=== PATIENT | male | born 1990 | race American Indian/Alaskan Native ===

== ENCOUNTER 2021-11-16 10:40 | Inpatient (IN) | payer SELFPAY ==
[2021-11-16 13:02] LABS: Hematocrit 44.6 % (35.5-45.6); Hemoglobin 14.6 gm/dl (11.8-15.2); Mean Corpuscular HGB Conc 33 % (32-34); Mean Corpuscular Volume 89 fl (84-94); Platelet Count 243 K/mm3 (140-440); Red Blood Count 5.05 M/mm3 (3.65-5.03); Red Cell Distribution Width 13.4 % (13.2-15.2)
[2021-11-16 13:04] LABS: Albumin 4.6 g/dL (3.9-5); Calcium 9.5 mg/dL (8.4-10.2)
[2021-11-16 16:49] LABS: Basophils % (Manual) 0 % (0.0-1.8); Eosinophils % (Manual) 0 % (0.0-4.3); Total Cells Counted 100
[2021-11-16 16:50] LABS: Platelet Estimate Consistent w Auto; RBC Morphology Normal
[2021-11-16] MEDS ORDERED: SODIUM CHLORIDE 0.9% 1000 ML 1,000 ML IV ONE ×2 (22:21)
[2021-11-16] MEDS ORDERED: ONDANSETRON 4 MG/2 ML INJ IV ONE (22:33)
--- NOTE | 2021-11-16 22:37 | Emergency Department Report ---
HPI - General Chief Complaint: Hyperglycemia Time Seen by Provider: 11/16/21 22:18 - HPI HPI: Room 24 The patient is a 31-year-old male present with a chief complaint of nausea vomiting. Patient is a type I diabetic and states for the past 2 days he has had intractable nausea vomiting. Patient states she has been taking his insulin but has not been able to eat. Patient denies diarrhea or fever. Patient initially denied pain but states he developed epigastric pain a few hours ago. ED Past Medical Hx - Past Medical History Hx Diabetes: Yes (Type I) - Surgical History Past Surgical History?: No - Family History Family history: no significant - Social History Smoking Status: Current Every Day Smoker (1 pack/day) Substance Use Type: None (Denies illicit drug use) ED Review of Systems ROS: Stated complaint: HIGH BLOOD PRESSURE Other details as noted in HPI Constitutional: denies: fever Eyes: denies: eye pain ENT: denies: throat pain Respiratory: no symptoms reported Cardiovascular: denies: chest pain Endocrine: no symptoms reported Gastrointestinal: abdominal pain, nausea, vomiting. denies: diarrhea Genitourinary: denies: dysuria Musculoskeletal: denies: back pain Neurological: denies: headache Physical Exam - Physical Exam Vital Signs: Vital Signs 11/16/21 23:09 Temperature 98.3 F Pulse Rate 116 H Respiratory 11 L Rate Blood Pressure 139/79 [Right] O2 Sat by Pulse 99 Oximetry Physical Exam: GENERAL: The patient is well-developed well-nourished male lying on stretcher not appearing to be in acute distress. [] HEENT: Normocephalic. Atraumatic. Extraocular motions are intact. Patient has dry mucous membranes. NECK: Supple. Trachea midline CHEST/LUNGS: Clear to auscultation. There is no respiratory distress noted. HEART/CARDIOVASCULAR: Regular. There is tachycardia. There is no gallop rub or murmur. ABDOMEN: Abdomen is soft, nontender. Patient has normal bowel sounds. There is no abdominal distention. SKIN: There is no rash. There is no edema. There is no diaphoresis. NEURO: The patient is awake, alert, and oriented. The patient is cooperative. The patient has no focal neurologic deficits. The patient has normal speech. GCS 15 MUSCULOSKELETAL: There is no evidence of acute injury. ED Medical Decision Making - Lab Data Result diagrams: 11/16/21 12:03 11/16/21 12:03 Laboratory Tests 11/16/21 11/16/21 11/16/21 12:03 12:03 12:03 WBC 21.1 H RBC 5.05 H Hgb 14.6 Hct 44.6 MCV 89 MCH 29 MCHC 33 RDW 13.4 Plt Count 243 Add Manual Diff Complete Total Counted 100 Seg Neuts % (Manual) 80.0 H Band Neutrophils % 0 Lymphocytes % (Manual) 13.0 L Reactive Lymphs % (Man) 0 Monocytes % (Manual) 7.0 Eosinophils % (Manual) 0 Basophils % (Manual) 0 Metamyelocytes % 0 Myelocytes % 0 Promyelocytes % 0 Blast Cells % 0 Nucleated RBC % Not Reportable Seg Neutrophils # Man 16.9 H Band Neutrophils # 0.0 Lymphocytes # (Manual) 2.7 Abs React Lymphs (Man) 0.0 Monocytes # (Manual) 1.5 H Eosinophils # (Manual) 0.0 Basophils # (Manual) 0.0 Metamyelocytes # 0.0 Myelocytes # 0.0 Promyelocytes # 0.0 Blast Cells # 0.0 WBC Morphology Not Reportable Hypersegmented Neuts Not Reportable Hyposegmented Neuts Not Reportable Hypogranular Neuts Not Reportable Smudge Cells Not Reportable Toxic Granulation Not Reportable Toxic Vacuolation Not Reportable Dohle Bodies Not Reportable Pelger-Huet Anomaly Not Reportable Johnnie Rods Not Reportable Platelet Estimate Consistent w auto Clumped Platelets Not Reportable Plt Clumps, EDTA Not Reportable Large Platelets Not Reportable Giant Platelets Not Reportable Platelet Satelliting Not Reportable Plt Morphology Comment Not Reportable RBC Morphology Normal Dimorphic RBCs Not Reportable Polychromasia Not Reportable Hypochromasia Not Reportable Poikilocytosis Not Reportable Anisocytosis Not Reportable Microcytosis Not Reportable Macrocytosis Not Reportable Spherocytes Not Reportable Pappenheimer Bodies Not Reportable Sickle Cells Not Reportable Target Cells Not Reportable Tear Drop Cells Not Reportable Ovalocytes Not Reportable Helmet Cells Not Reportable Berumen-Hackberry Bodies Not Reportable Cleghorn Rings Not Reportable Marion Cells Not Reportable Bite Cells Not Reportable Crenated Cell Not Reportable Elliptocytes Not Reportable Acanthocytes (Spur) Not Reportable Rouleaux Not Reportable Hemoglobin C Crystals Not Reportable Schistocytes Not Reportable Malaria parasites Not Reportable Edward Bodies Not Reportable Hem Pathologist Commnt No VBG pH 7.268 L Sodium 141 Potassium 5.8 H Chloride 94.7 L Carbon Dioxide 20 L Anion Gap 32 BUN 50 H Creatinine 2.3 H Estimated GFR 33 BUN/Creatinine Ratio 22 Glucose 476 H Calcium 9.5 Total Bilirubin 0.40 AST 12 ALT 24 Alkaline Phosphatase 103 Total Protein 7.3 Albumin 4.6 Albumin/Globulin Ratio 1.7 - Differential Diagnosis DKA Critical care attestation.: If time is entered above; I have spent that time in minutes in the direct care of this critically ill patient, excluding procedure time. ED Disposition Clinical Impression: DKA (diabetic ketoacidosis) Disposition: ADMITTED INPATIENT Is pt being admited?: Yes Does the pt Need Aspirin: No Condition: Fair Instructions: Diabetic Ketoacidosis (ED) Time of Disposition: 22:37 (Care transferred to hospitalist (Dr. Ely))
[2021-11-16] MEDS ORDERED: MAGNESIUM HYDROXIDE (MOM) ORAL LIQD UDC PO PRN (22:43)
[2021-11-16] MEDS ORDERED: MORPHINE 4 MG/1 ML INJ IV PRN (22:43)
[2021-11-16] MEDS ORDERED: ONDANSETRON 4 MG/2 ML INJ IV PRN (22:43)
[2021-11-16] MEDS ORDERED: ACETAMINOPHEN 325 MG TAB PO PRN (22:43)
[2021-11-16] MEDS ORDERED: MORPHINE 2 MG/1 ML INJ IV PRN (22:43)
[2021-11-16] MEDS ORDERED: DEXTROSE 50% IN WATER (25GM) 50 ML SYRINGE IV PRN (22:43)
[2021-11-16] MEDS ORDERED: SODIUM CHLORIDE 0.9% 1000 ML 1,000 ML IV SCH (22:45)
--- NOTE | 2021-11-16 22:53 | History and Physical Report ---
History of Present Illness Date of examination: 11/16/21 Date of admission: 11/16/2021 Chief complaint: Nausea and Vomiting History of present illness: 31-year-old male with known history of diabetes mellitus presenting to the emergency room today complaining of nausea and vomiting which has been ongoing for the past 2 days. Patient denies any fever or chills , denies any chest pain or shortness of breath. Denies any diarrhea. He however has had some mild epig astric discomfort. Patient denies any sick contacts and no recent travel. Denies any contact with anyone with COVID-19. He states he has been compliant with his medications. Work-up in the emergency room today, labs are significant for leukocytosis of 21.1, blood glucose of 476, anion gap of 32, BUN of 15 creatinine of 2.3. Patient has been admitted in DKA and SANDRA. Past History Past Medical History: diabetes Past Surgical History: No surgical history Social history: smoking (Current daily smoker) Family history: no significant family history Medications and Allergies Allergies Allergy/AdvReac Type Severity Reaction Status Date / Time No Known Allergies Allergy Verified 11/16/21 11:12 Active Meds: Active Medications Insulin Human Regular 100 (units/ Sodium Chloride) 100 mls @ 8 mls/hr IV TITR LATA; Protocol Sodium Chloride (Nacl 0.9% 1000 Ml) 1,000 mls @ 999 mls/hr IV ONCE ONE Stop: 11/16/21 23:21 Sodium Chloride (Nacl 0.9% 1000 Ml) 1,000 mls @ 999 mls/hr IV ONCE ONE Stop: 11/16/21 23:21 Review of Systems Constitutional: no fever, no chills Ears, nose, mouth and throat: no nasal congestion, no sore throat Cardiovascular: no chest pain, no palpitations Respiratory: no cough, no shortness of breath Gastrointestinal: abdominal pain, nausea, vomiting, no diarrhea Genitourinary Male: no dysuria, no hematuria, no flank pain Musculoskeletal: no neck pain, no low back pain Integumentary: no rash, no pruritis Neurological: no headaches, no confusion Psychiatric: no anxiety, no depression Endocrine: no polyphagia, no polydipsia, no polyuria, no nocturia Exam - Constitutional General appearance: Present: no acute distress, well-nourished - EENT Eyes: Present: PERRL, EOM intact. Absent: scleral icterus ENT: hearing intact, clear oral mucosa, dentition normal - Neck Neck: Present: supple, normal ROM - Respiratory Respiratory effort: normal Respiratory: bilateral: CTA - Cardiovascular Rhythm: regular Heart Sounds: Present: S1 & S2. Absent: gallop, systolic murmur, diastolic murmur, rub, click - Extremities Extremities: no ischemia, pulses intact, pulses symmetrical, No edema, normal temperature, normal color, Full ROM Peripheral Pulses: within normal limits - Abdominal General gastrointestinal: Present: soft, non-tender, non-distended, normal bowel sounds. Absent: mass - Integumentary Integumentary: Present: clear, warm, dry, normal turgor. Absent: rash - Musculoskeletal Musculoskeletal: strength equal bilaterally - Psychiatric Psychiatric: appropriate mood/affect, intact judgment & insight, memory intact, cooperative - Neurologic Neurologic: CNII-XII intact, no focal deficits, moves all extremities Results - Labs CBC & Chem 7: 11/16/21 12:03 11/17/21 04:32 Labs: Abnormal lab results 11/16/21 11/16/21 11/16/21 Range/Units 12:03 12:03 12:03 WBC 21.1 H (4.5-11.0) K/mm3 RBC 5.05 H (3.65-5.03) M/mm3 Seg Neuts % (Manual) 80.0 H (40.0-70.0) % Lymphocytes % (Manual) 13.0 L (13.4-35.0) % Seg Neutrophils # Man 16.9 H (1.8-7.7) K/mm3 Monocytes # (Manual) 1.5 H (0.0-0.8) K/mm3 VBG pH 7.268 L (7.320-7.420) Potassium 5.8 H (3.6-5.0) mmol/L Chloride 94.7 L (98-107) mmol/L Carbon Dioxide 20 L (22-30) mmol/L BUN 50 H (9-20) mg/dL Creatinine 2.3 H (0.8-1.3) mg/dL Glucose 476 H (75-100) mg/dL Assessment and Plan Assessment: 1.Diabetic Ketoacidosis 2.Nausea and Vomiting- Secondary to DKA 3. SANDRA-possibly secondary to dehydration. Plan: 1.Started on insulin drip and IV fluid 2.Will monitor blood glucose closely 3. We will continue patient on IV fluid. Will monitor BUN and creatinine. 4. We will place consult to nephrology for further evaluation and recommendations. DVT Prophylaxis: SQ Heparin Code Status: Full Code
[2021-11-16] MEDS ORDERED: INSULIN REGULAR, HUMAN 100 UNITS in SODIUM CHLORIDE 0.9% 99 ML IV SCH (23:00)
[2021-11-16] MEDS ORDERED: D5W/0.45% NACL/KCL 20 MEQ 20 MEQ/1,000 ML BAG IV SCH (23:00)
[2021-11-16 23:28] LABS: Calcium 9.1 mg/dL (8.4-10.2)
[2021-11-17 01:34] LABS: Calcium 8.2 mg/dL (8.4-10.2)
[2021-11-17] MEDS: D5W/0.45% NACL 1,000 ML IV SCH ×2 (05:05→14:30)
[2021-11-17 05:30] LABS: Calcium 8.8 mg/dL (8.4-10.2)
[2021-11-17] MEDS: HEPARIN 5,000 UNIT/1 ML VIAL SUB-Q SCH ×2 (07:29→14:31)
--- NOTE | 2021-11-17 08:37 | Progress Note ---
Subjective Date of service: 11/17/21 Objective - Vital Signs Vital signs: Vital Signs - 12hr 11/16/21 11/17/21 11/17/21 23:09 02:58 06:00 Temperature 98.3 F Pulse Rate 116 H Respiratory 11 L Rate Blood Pressure 139/79 [Right] O2 Sat by Pulse 99 98 98 Oximetry - Lab 11/16/21 12:03 11/17/21 04:32 Most recent lab results Calcium 8.8 mg/dL (8.4-10.2) 11/17/21 04:32 Phosphorus 4.60 mg/dL (2.5-4.5) H 11/16/21 22:52 Magnesium 2.50 mg/dL (1.7-2.3) H 11/16/21 22:52 Medications & Allergies - Medications Allergies/Adverse Reactions: Allergies No Known Allergies Allergy (Verified 11/16/21 11:12) Active Medications: Generic Name Dose Route Start Last Admin Trade Name Freq PRN Reason Stop Dose Admin Acetaminophen 650 mg 11/16/21 22:43 Acetaminophen 325 Mg Tab PO Q6H PRN Pain MILD(1-3)/Fever >100.5/CORONA Dextrose 0 ml 11/16/21 22:43 Dextrose 50% In Water (25gm) 50 Ml Syringe IV Q30MIN PRN Hypoglycemia Protocol Famotidine 20 mg 11/17/21 10:00 Famotidine 20 Mg/2 Ml Inj IV 11/18/21 09:59 QDAY LATA Famotidine 20 mg 11/18/21 10:00 Famotidine 20 Mg Tab PO QDAY LATA Heparin Sodium (Porcine) 5,000 unit 11/17/21 06:00 11/17/21 07:29 Heparin 5,000 Unit/1 Ml Vial SUB-Q 5,000 unit Q8HR LATA Administration Insulin Human Regular 100 100 mls @ 8 mls/hr 11/16/21 23:00 11/17/21 08:02 units/ Sodium Chloride IV 3 units/hr TITR LATA 3 mls/hr Titration Protocol 8 UNITS/HR Sodium Chloride 1,000 mls @ 150 mls/hr 11/16/21 22:45 11/17/21 05:05 Nacl 0.9% 1000 Ml IV 0 mls/hr DIRECT LATA Infusion Dextrose/Sodium Chloride 1,000 mls @ 125 mls/hr 11/17/21 04:03 11/17/21 05:05 D5/0.45ns IV 125 mls/hr DIRECT LATA Administration Lactated Ringer's 2,000 mls @ 999 mls/hr 11/17/21 10:00 Lactated Ringers IV 11/17/21 12:00 BOLUS ONE Magnesium Hydroxide 30 ml 11/16/21 22:43 Magnesium Hydroxide (Mom) Oral Liqd Udc PO Q4H PRN Constipation Morphine Sulfate 2 mg 11/16/21 22:43 Morphine 2 Mg/1 Ml Inj IV Q4H PRN Pain, Moderate (4-6) Ondansetron HCl 4 mg 11/16/21 22:43 11/17/21 02:45 Ondansetron 4 Mg/2 Ml Inj IV 4 mg Q8H PRN Administration Nausea And Vomiting Sodium Chloride 10 ml 11/17/21 10:00 Sodium Chloride 0.9% 10 Ml Flush Syringe IV BID LATA Sodium Chloride 10 ml 11/16/21 22:43 Sodium Chloride 0.9% 10 Ml Flush Syringe IV PRN PRN LINE FLUSH
[2021-11-17] MEDS ORDERED: FAMOTIDINE 20 MG/2 ML INJ IV SCH (10:00)
[2021-11-17] MEDS ORDERED: LACTATED RINGERS 2,000 ML IV ONE (10:00)
[2021-11-17 10:27] LABS: Mucus,Urine FEW /HPF; RBC,Urine < 1.0 /HPF (0.0-6.0)
[2021-11-17 10:54] LABS: Color,Urine Straw (Yellow)
[2021-11-17 11:28] LABS: Hematocrit 40.5 % (35.5-45.6); Hemoglobin 13.5 gm/dl (11.8-15.2); Mean Corpuscular HGB Conc 33 % (32-34); Mean Corpuscular Volume 88 fl (84-94); Platelet Count 174 K/mm3 (140-440); Red Cell Distribution Width 13.5 % (13.2-15.2)
[2021-11-17 11:41] LABS: BUN/Creatinine Ratio 19; Blood Urea Nitrogen 26 mg/dL (9-20); Calcium 8.8 mg/dL (8.4-10.2); Hemolysis Index 2
--- NOTE | 2021-11-17 12:51 | Consultation ---
History of Present Illness Consult date: 11/17/21 Requesting physician: DESIREE ELLER Reason for consult: other (DKA) History of present illness: PULMONARY/CCM CONSULT NOTE (Full dictation # [id number]) Please see dictated notes for full details Past History Past Medical History: diabetes Past Surgical History: No surgical history Social history: smoking (Current daily smoker) Family history: no significant family history Medications and Allergies Allergies Allergy/AdvReac Type Severity Reaction Status Date / Time No Known Allergies Allergy Verified 11/16/21 11:12 Home Medications Medication Instructions Recorded Confirmed Last Taken Type NovoLIN 70/30 15 units SQ BID 11/17/21 11/17/21 11/16/21 08:00 History Novolin R units SQ ACHS 11/17/21 11/16/21 08:00 History Active Meds: Active Medications Acetaminophen (Acetaminophen 325 Mg Tab) 650 mg PO Q6H PRN PRN Reason: Pain MILD(1-3)/Fever >100.5/CORONA Dextrose (Dextrose 50% In Water (25gm) 50 Ml Syringe) 0 ml IV Q30MIN PRN; Protocol PRN Reason: Hypoglycemia Famotidine (Famotidine 20 Mg/2 Ml Inj) 20 mg IV QDAY LATA Stop: 11/18/21 09:59 Last Admin: 11/17/21 09:09 Dose: 20 mg Famotidine (Famotidine 20 Mg Tab) 20 mg PO QDAY LATA Heparin Sodium (Porcine) (Heparin 5,000 Unit/1 Ml Vial) 5,000 unit SUB-Q Q8HR LATA Last Admin: 11/17/21 07:29 Dose: 5,000 unit Insulin Human Regular 100 (units/ Sodium Chloride) 100 mls @ 8 mls/hr IV TITR LATA; Protocol Last Titration: 11/17/21 12:07 Dose: 1 units/hr, 1 mls/hr Sodium Chloride (Nacl 0.9% 1000 Ml) 1,000 mls @ 150 mls/hr IV DIRECT LATA Last Infusion: 11/17/21 05:05 Dose: 0 mls/hr Dextrose/Sodium Chloride (D5/0.45ns) 1,000 mls @ 125 mls/hr IV DIRECT LATA Last Admin: 11/17/21 05:05 Dose: 125 mls/hr Magnesium Hydroxide (Magnesium Hydroxide (Mom) Oral Liqd Udc) 30 ml PO Q4H PRN PRN Reason: Constipation Morphine Sulfate (Morphine 2 Mg/1 Ml Inj) 2 mg IV Q4H PRN PRN Reason: Pain, Moderate (4-6) Ondansetron HCl (Ondansetron 4 Mg/2 Ml Inj) 4 mg IV Q8H PRN PRN Reason: Nausea And Vomiting Last Admin: 11/17/21 02:45 Dose: 4 mg Sodium Chloride (Sodium Chloride 0.9% 10 Ml Flush Syringe) 10 ml IV BID LATA Last Admin: 11/17/21 09:09 Dose: 10 ml Sodium Chloride (Sodium Chloride 0.9% 10 Ml Flush Syringe) 10 ml IV PRN PRN PRN Reason: LINE FLUSH Physical Examination Vital signs: Vital Signs Temp Pulse Resp BP Pulse Ox 98.3 F 116 H 11 L 139/79 99 11/16/21 23:09 11/16/21 23:09 11/16/21 23:09 11/16/21 23:09 11/16/21 23:09 Results - Laboratory Findings CBC and BMP: 11/17/21 11:05 11/17/21 11:05 Abnormal lab findings: Abnormal Labs 11/16/21 11/16/21 11/16/21 12:03 12:03 12:03 WBC 21.1 H RBC 5.05 H Seg Neuts % (Manual) 80.0 H Lymphocytes % (Manual) 13.0 L Seg Neutrophils # Man 16.9 H Monocytes # (Manual) 1.5 H VBG pH 7.268 L Sodium Potassium 5.8 H Chloride 94.7 L Carbon Dioxide 20 L BUN 50 H Creatinine 2.3 H Glucose 476 H POC Glucose Hemoglobin A1c Calcium Phosphorus Magnesium 11/16/21 11/16/21 11/16/21 22:52 22:52 23:58 WBC RBC Seg Neuts % (Manual) Lymphocytes % (Manual) Seg Neutrophils # Man Monocytes # (Manual) VBG pH Sodium Potassium 5.6 H Chloride Carbon Dioxide 19 L BUN 46 H Creatinine 2.1 H Glucose 487 H POC Glucose 397 H Hemoglobin A1c Calcium Phosphorus 4.60 H Magnesium 2.50 H 11/17/21 11/17/21 11/17/21 00:46 01:17 02:34 WBC RBC Seg Neuts % (Manual) Lymphocytes % (Manual) Seg Neutrophils # Man Monocytes # (Manual) VBG pH Sodium Potassium 5.5 H Chloride Carbon Dioxide 18 L BUN 43 H Creatinine 1.7 H Glucose 449 H POC Glucose 346 H 323 H Hemoglobin A1c Calcium 8.2 L Phosphorus Magnesium 11/17/21 11/17/21 11/17/21 04:01 04:32 05:01 WBC RBC Seg Neuts % (Manual) Lymphocytes % (Manual) Seg Neutrophils # Man Monocytes # (Manual) VBG pH Sodium 148 H Potassium Chloride 107.7 H Carbon Dioxide BUN 38 H Creatinine 1.7 H Glucose 218 H POC Glucose 238 H 160 H Hemoglobin A1c Calcium Phosphorus Magnesium 11/17/21 11/17/21 11/17/21 06:07 06:48 08:00 WBC RBC Seg Neuts % (Manual) Lymphocytes % (Manual) Seg Neutrophils # Man Monocytes # (Manual) VBG pH Sodium Potassium Chloride Carbon Dioxide BUN Creatinine Glucose POC Glucose 193 H 150 H 157 H Hemoglobin A1c Calcium Phosphorus Magnesium 11/17/21 11/17/21 11/17/21 09:05 09:59 10:56 WBC RBC Seg Neuts % (Manual) Lymphocytes % (Manual) Seg Neutrophils # Man Monocytes # (Manual) VBG pH Sodium Potassium Chloride Carbon Dioxide BUN Creatinine Glucose POC Glucose 129 H 127 H 111 H Hemoglobin A1c Calcium Phosphorus Magnesium 11/17/21 11/17/21 11/17/21 11:05 11:05 11:05 WBC 15.4 H RBC Seg Neuts % (Manual) Lymphocytes % (Manual) Seg Neutrophils # Man Monocytes # (Manual) VBG pH Sodium 148 H Potassium Chloride 109.1 H Carbon Dioxide BUN 26 H Creatinine 1.4 H Glucose 112 H POC Glucose Hemoglobin A1c 9.7 H Calcium Phosphorus Magnesium
[2021-11-17 13:55] LABS: Creatinine,Urine 142.5 mg/dL (0.1-20.0); Protein/Creatinine Ratio,Urine 0.34
[2021-11-17] MEDS ORDERED: DEXTROSE 50% IN WATER (25GM) 50 ML SYRINGE IV PRN (14:00)
[2021-11-17] MEDS ORDERED: INSULIN NPH/REGULAR 70/30 INJ SUB-Q SCH (15:30)
[2021-11-17] MEDS: INSULIN REGULAR, HUMAN 100 UNITS/1 ML SUB-Q SCH ×2 (16:27→16:30)
--- NOTE | 2021-11-17 16:59 | Discharge Summary ---
<MOOK THOMAS - Last Filed: 11/17/21 19:07> Providers - Providers Date of Admission: 11/16/21 22:43 Date of discharge: 11/17/21 Attending physician: MIKA KHAN MD 11/16/21 22:43 Consult to Dietitian/Nutrition [CONS] Routine Physician Instructions: Reason For Exam: Reason for Consult: Diet education Consult to Physician [CONS] Routine Comment: Consulting Provider: MONCHO GREEN Physician Instructions: Reason For Exam: DKA 11/17/21 07:54 Consult to Physician [CONS] Routine Comment: Consulting Provider: PRIYA JACK Physician Instructions: Reason For Exam: SANDRA Primary care physician: GROUP THERAPIST Hospitalization Reason for admission: Diabetioc Ketoacidosis(DKA), SANDRA Condition: Stable Hospital course: This is a 31-year old male with past medical history of insulin dependent diabetes mellitus who presented in the emergency room complaining of nausea and vomiting which has been ongoing for the past 2 days. Patient denies any fever or chills, no diarrhea, nor any chest pain or shortness of breath. He however has had some mild epigastric discomfort. Patient denies any sick contacts and no recent travel. Denies any contact with anyone with COVID-19. He states he has been compliant with his medications. Work-up in the emergency room shows labs are significant for leukocytosis of 21.1, blood glucose of 476, anion gap of 32, BUN of 15 creatinine of 2.3. Patient was [facility] for D[facility] and SANDRA. Insulin gtt and IVF resuscitation were initiated per DKA protocol. Patient's BG and anion gap closed this am. Nausea/vomiting and abdominal pain resolved. Patient renal function also showed significant improvement post IVF hydration. Renal US pending and Nephrology was consulted. Patient reported his DKA is probably related to dehydration. 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 Patient reported being compliant with his insulin and his current regimen has been working. Patient was transitioned to his home insulin regimen and is tolerating PO intake. Patient is stable for discharge back home today. Follow up outpatient with nephrology for Renal US result and further management. Plan of care thoroughly discussed with patient. He verbalized understanding and agreed with current care plan. Patient is a daily 1 pack a day cigarettes smoker for over 10 years. Smoking cessation education and quitline resources provided. Patient verbalized understanding and agreed with the info provided. Patient denied any smoking urges at this time. Patient also reported that he usually get his insulin at [facility], he does not need any prescription for discharge. Diagnoses 1.Diabetic Ketoacidosis 2.Nausea and Vomiting- Secondary to DKA 3.SANDRA-possibly secondary to dehydration. Plan: 1.Started on insulin drip and IV fluid 2.Will monitor blood glucose closely 3.We will continue patient on IV fluid. Will monitor BUN and creatinine. 4. We will place consult to nephrology for further evaluation and recommendations. Disposition: HOME / SELF CARE / HOMELESS Final Discharge Diagnosis (Prints w/discharge instructions): Insulin Dependent Diabetic Mellitus(IDDM). Acute Kidney Injury(SANDRA) Time spent for discharge: 35 Core Measure Documentation - Palliative Care Palliative Care/ Comfort Measures: Not Applicable - Core Measures Any of the following diagnoses?: none Exam - Constitutional Vitals: Temp Pulse Resp BP Pulse Ox 98.6 F 106 H 12 133/87 99 11/17/21 12:00 11/17/21 16:00 11/17/21 16:00 11/17/21 16:00 11/17/21 16:00 General appearance: Present: no acute distress, well-nourished, obese - EENT Eyes: Present: PERRL, EOM intact ENT: hearing intact, clear oral mucosa - Neck Neck: Present: normal ROM - Respiratory Respiratory effort: normal Respiratory: bilateral: CTA - Cardiovascular Rhythm: regular Heart Sounds: Present: S1 & S2 - Extremities Extremities: no ischemia, pulses intact, pulses symmetrical Peripheral Pulses: within normal limits - Abdominal General gastrointestinal: Present: soft, non-distended, normal bowel sounds Male genitourinary: Present: deferred - Rectal Rectal Exam: deferred - Integumentary Integumentary: Present: clear, warm, dry - Musculoskeletal Musculoskeletal: strength equal bilaterally - Psychiatric Psychiatric: appropriate mood/affect, cooperative - Neurologic Neurologic: CNII-XII intact, moves all extremities - Allied Health Allied health notes reviewed: nursing, case management Plan Activity: no restrictions Diet: low fat, low cholesterol, diabetic, low carbohydrate Wound: open to air Care Plan Goals: Follow up with your primary care provider within 7 days Follow up with Nephrology within 7 to 10 days for renal US result and further management Take your medications as prescribed. Drink plenty of water, stay hydrated Refrain from cigarettes smoking/Smoking cessation If your symptoms return, visit your nearest emergency department for further evaluation and treatment Follow up with: PHOENIX ARDON MD [Primary Care Provider] - 3-5 Days PRIYA JACK MD [Staff Physician] - 7 Days <MIKA KHAN - Last Filed: 11/17/21 19:42> Providers - Providers Date of Admission: 11/16/21 22:43 Attending physician: MIKA KHAN MD Primary care physician: GROUP THERAPIST Hospitalization Hospital course: I saw and evaluated the patient. I agree with the findings and the plan of care as documented in the Nurse Practitioner's~note, with the following corrections and additions. Exam - Constitutional Vitals: Temp Pulse Resp BP Pulse Ox 98.6 F 106 H 13 129/73 99 11/17/21 12:00 11/17/21 17:00 11/17/21 17:00 11/17/21 18:01 11/17/21 17:00
[2021-11-17] MEDS ORDERED: INSULIN ISOPHANE HUMAN SQ SCH (17:00)
[2021-11-17] MEDS ORDERED: INSULIN REGULAR HUMAN SQ SCH (17:00)
--- NOTE | 2021-11-17 17:34 | Ultrasound Report ---
. ULTRASOUND RENAL INDICATION / CLINICAL INFORMATION: Acute renal failure.. COMPARISON: None available. FINDINGS: RIGHT KIDNEY: Length = 10.7 cm. - Echogenicity: Normal. - Parenchymal Thickness: Normal. - Hydronephrosis: None. - Cyst / Mass: None. - Stones: None seen. LEFT KIDNEY: Length = 10.9 cm. - Echogenicity: Normal. - Parenchymal Thickness: Normal. - Hydronephrosis: None. - Cyst / Mass: None. - Stones: None seen. URINARY BLADDER: No significant abnormality. FREE FLUID: None. ADDITIONAL FINDINGS: None. IMPRESSION: 1. No significant abnormality. Signer Name: Suresh Quintanilla MD Signed: 11/17/2021 5:29 PM Workstation Name: [id number]
[2021-11-17 18:28] VITALS: BP 129/73
--- NOTE | 2021-11-18 00:09 | Consultation ---
DATE OF CONSULTATION: 11/17/2021 CONSULTING PHYSICIAN: Dr. Todd Ely. REASON FOR CONSULTATION: Diabetic ketoacidosis. CHIEF COMPLAINT AND HISTORY OF PRESENT ILLNESS: The patient is a now 31-year-old male with past medical history significant for a diagnosis of diabetes, who came into the Emergency Room complaining of nausea and vomiting that had been going on for about 2 days. He denied chest pain. Denied fevers or chills. He denied any open wounds or sores or cuts on his body. He denied diarrhea. He was complaining of some mild epigastric pain. He denied any sick contacts or any contact with anyone with known COVID-19 infection. He admitted to me that he has not been taking his diabetic medications. He was evaluated in the ER, had leukocytosis, was diagnosed with acute kidney injury as well as diabetic ketoacidosis. ICU admission was requested and offered. He was started on IV insulin drips and remained on the DKA protocol. When I stopped by to see him, he was feeling much better, though. He denied any nausea or vomiting at that time. When asked about tobacco use/abuse history, he admits to tobacco use. This really is as much of the history of presentation as I have. PAST MEDICAL HISTORY: Diabetes. PAST SURGICAL HISTORY: Denies. MEDICATIONS: He was on at the time I stopped by to see him according to the medication physician record included the following: Tylenol 650 mg p.o. q. 6 hours p.r.n. mild pain or fevers, D5 half NS drip was going at 125 mL per hour, famotidine 20 mg IV daily, heparin 5000 units subcutaneous q. 8 hours, insulin was going at 8 units per hour, regular insulin that is IV, morphine sulfate 2 mg IV q. 4 hours p.r.n. moderate pain, Zofran 4 mg IV q. 8 hours p.r.n. nausea and vomiting. ALLERGIES: No known drug allergies. DIET: Well-built gentleman. Denies acute weight loss or gain in the preceding few weeks to months. FAMILY AND SOCIAL HISTORY: Lives in the community. Denies alcohol or illicit drug use or abuse. He admits to tobacco use. Denies any family history otherwise. REVIEW OF SYSTEMS: No loss of consciousness. No new onset seizures. No new onset focal weakness. Denies gross hematochezia or melena. Denies gross hematuria or dysuria. No hematemesis, no hemoptysis. He did have some polyuria and polydipsia. Complete 13-system review of system was obtained. Pertinent positives and/or negatives as in body of history above, otherwise they are noncontributory. PHYSICAL EXAMINATION: VITAL SIGNS: On presentation and since afebrile, temperature 98.3 degrees Fahrenheit with a pulse of 116, respiratory rate of 11, blood pressure 139/79, O2 sats were 99% at the time I saw him, that was on room air. GENERAL: He is a well-built male. Normocephalic, atraumatic. Resting in bed with normal respiratory effort at rest. HEAD, EYES, EARS, NOSE AND THROAT: Anicteric. No conjunctival erythema. Oropharynx was moist. NECK: No gross jugular venous distention, no thyromegaly. Grossly, there were no palpable lymph nodes in the supraclavicular or submandibular lymph node chains. LUNGS: Auscultation of both lung malloy unremarkable. Lungs were clear bilaterally with good bilateral air movement. HEART: Sounds 1 and 2 are heard. There were regular rate and rhythm at the time of my evaluation without overt rubs or murmurs. ABDOMEN: Soft, flat, bowel sounds are positive, nontender, no palpable hepatosplenomegaly. EXTREMITIES: Without overt digital clubbing or cyanosis. No pedal edema. Pedal pulses are 2+ bilaterally. NEUROLOGIC: Pupils are equal, round, about 4 mm, reactive to light. Extraocular muscle movements are intact. He moves all 4 extremities spontaneously. SKIN: Normal turgor in the areas I examined without overt cellulitis or rash. Please see the wound care nurses' notes for full description of his skin. PSYCHIATRIC: Mood was normal. Affect was appropriate. He had intact judgment and insight. LABORATORY DATA: From my review are as follows: Admission white cell count 21,100 with hemoglobin of 14.6, hematocrit of 44.6, platelet count 243. No band neutrophils on the manual differential. Venous blood gas showed a pH of 7.27. Serum sodium was 141, potassium 5.8, chloride 95, bicarbonate 20, BUN 50, creatinine 2.3, glucose 476. Liver function tests essentially within normal limits. Urinalysis negative for nitrites and leukocyte esterase. No significant white cells per high power field. He was spilling glucose. His most recent labs shows that the anion gap is normalized and creatinine is down to 1.4. MICROBIOLOGY: No microbiology studies for my review IMAGING: Renal ultrasound is pending. ASSESSMENT: 1. Diabetic ketoacidosis. 2. Noncompliance with medication. 3. Nausea and vomiting. 4. Acute kidney injury. 5. Hyperkalemia at presentation. 6. Leukocytosis. PLAN: His IV insulin is about to be held. It was held earlier due to low blood sugar readings. His gap appears to have closed. We will re-institute him on long-acting oral formulation at this point or subQ formulations. We will continue the sliding scale. Oral nutrition will be resumed. He will be continued on GI and DVT prophylaxis. Tobacco abstinence has been strongly counseled at bedside. Flu and pneumonia vaccination will be addressed per protocol. As long as his gap remains closed, he can be transferred out of the intensive care unit. Thank you very much for the consult. We will follow along and make further recommendations as picture progresses/becomes clearer. TID: [id number] RECEIPT: [id number] [facility]
[2021-11-18] MEDS ORDERED: FAMOTIDINE 20 MG TAB PO SCH (10:00)
== END 2021-11-17 18:20 | disposition home or self-care (01) | DRG 638 ==
LOC: ED 10:40 → CC1 22:43
PROVIDERS: ADMIT Internal Medicine Geriatric Medicine; ATTEND Internal Medicine
DX: E11.10 Type 2 diabetes mellitus with ketoacidosis without coma (principal); N17.9 Acute kidney failure, unspecified; F17.200 Nicotine dependence, unspecified, uncomplicated; E86.0 Dehydration
CPT/HCPCS: 36415; 76770; 80048; 80053; 81001; 82570; 82805; 82962; 83036; 83735; 84100; 84156; 84300; 85007; 85025; 85027; 93005; G0378; J3490; J7070; Q0177; Q9967; J1644; J1815; J2405; J7030; J7120